=== PATIENT | male | born 1950 | race Two or more races ===

== ENCOUNTER → 2024-02-03 | Outpatient (CLI) | payer OTHER, SELFPAY ==
--- NOTE | 2024-02-03 14:00 | XR_ITS ---
Examination: Bone densitometry Date and time of exam:February 03, 2024 1353 hours INDICATIONS: 73-year-old male with diagnosis age related osteoporosis Technique: Lumbar spine and hip total bone mineralization values of an calculated. Peak reference and age match control results have been displayed. Findings: Lumbar spine total bone mineralization is1.055 gm/cm2. This is 0.3 standard deviations below peak reference. This is 0.6 standard deviations above age-matched controls. Hip total bone mineralization is 1.072 gm/cm2 This is 0.1 standard deviations above peak reference. This is 0.9 standard deviations above age-matched controls Impression: There is normal mineralization based on lumbar spine measurements. There is normal mineralization based on hip measurements
== END | disposition home or self-care (01) ==
PROVIDERS: PCP Family Medicine; Referring Provider Ophthalmology; Visit Provider Family Medicine
DX: M81.0 Age-related osteoporosis without current pathological fracture (principal)
CPT/HCPCS: 77080

== ENCOUNTER 2024-02-15 14:35 | Outpatient (AMB) | payer OTHER, SELFPAY ==
[2024-02-15 15:11] VITALS: BP 176/96; PULSE 62; RESP 18; TEMP 35.7; O2SAT 94; BMI 34.3
--- NOTE | 2024-02-15 15:11 | PD.ORTHCLVIS ---
Vital signs 02/15/24 15:11 Height 1.78 m Height Method Stated Weight 108.635 kg Weight Measurement Method Standing Scale BMI 34.3 BP 176/96 H Blood Pressure Source Automatic Cuff Blood Pressure Location Right Upper Arm Position Sitting Respiration 18 Pulse 62 Pulse Source Monitor Temp 96.2 F L Temp Source Temporal Artery Scan Pulse Oximetry (%) 94 L Oxygen Delivery Method Room Air Med/Allergies Allergies & Medications Allergies No Known Allergies Allergy (Verified 02/15/24 15:12) Medication Reconciliation acetaminophen 500 mg tablet 500 mg PO Q6H PRN Pain 08/10/23 [History Confirmed 02/15/24] atorvastatin 40 mg tablet 40 mg PO QPM 08/10/23 [History Confirmed 02/15/24] gemfibrozil 600 mg tablet 600 mg PO BID 08/10/23 [History Confirmed 02/15/24] ibuprofen 800 mg tablet 800 mg PO Q8H PRN Pain 08/10/23 [History Confirmed 02/15/24] lisinopril 40 mg tablet 40 mg PO QDAY 08/10/23 [History Confirmed 02/15/24] tizanidine 4 mg capsule 4 mg PO Q8H PRN Pain 08/10/23 [History Confirmed 02/15/24] acetaminophen 500 mg tablet (Acetaminophen Extra Strength) 1,000 mg (2 x 500 mg) PO Q6H PRN pain #90 tabs 08/11/23 [Rx Confirmed 02/15/24] aspirin 81 mg tablet,delayed release 81 mg PO BID #60 tabs 08/11/23 [Rx Confirmed 02/15/24] doxycycline hyclate 100 mg tablet 100 mg PO BID #14 tabs 08/11/23 [Rx Confirmed 02/15/24] gabapentin 300 mg capsule 300 mg PO .qhs #30 caps 08/11/23 [Rx Confirmed 02/15/24] oxycodone 5 mg tablet 5 mg PO Q6H PRN pain #28 tabs 08/11/23 [Rx Confirmed 02/15/24] sennosides 8.6 mg-docusate sodium 50 mg tablet (Senna-S) 1 tab-cap PO QDAY #30 tabs 08/11/23 [Rx Confirmed 02/15/24] Exam Exam Patient is in no acute distress and is cooperative with the examination today. Patient has a normal mood and affect. Breathing is nonlabored. In no respiratory distress. Bilateral extremities were evaluated and demonstrates sensation intact to light touch. Palpable pedal pulses are present. No significant edema is present. Right hip incisions clean dry intact. His leg lengths are equal \ Right hip x-rays demonstrate a cementless total hip replacement in good alignment position Assessment and Plan Problem List (1) Status post total hip replacement, right: Status: Acute Plan: Patient is doing well status post right total hip replacement. His x-rays look good. He is doing well status post right total hip replacement has no pain at all. We will see him on an as-needed basis or every 1 to 2 years at this point Advanced Care Planning Discussion Advance care planning discussed with:: patient Office Procedures GNS Level of Care Nursing/Assessment Patient Status: Established Patient Nursing Assessment/Reassesment: Medication Reconciliation, Update PMH in EMR and Vital Signs Coordination of Care: Complex Care and Chronic Disease 1-5, Education Complex Pt/Fam, Consent,records obtained, informed consent, Results/Orders obtained and Staff clarify orders Established Patient Charge Established Patient Point Assignment: 95 Established Patient Point Charge: EP Level 3 (80-115) [place] Intake Visit Data Collection New Patient or Established: Established Patient (seen at [facility] within 3 years) Reason for Visit:: F/U [facility] [employer] Required: Yes PCP or OBGYN visit in last 3 months: Yes Hx Now: No Do You Feel Safe at Home: Yes Authorities Contacted: N/A Questionairres Past Medical History Past Medical History Have you ever been diagnosed with any of the following: Neurological Problems Alzheimer's Disease: No Seizures: No Cardiology Problems Hypercholesterolemia: Yes Congestive Heart Failure: No Hypertension: Yes Varicose Veins: Yes Respiratory Problems Chronic Obstructive Pulmonary Disease (COPD): No Smoking: No Smoking Exposure: No Stomache/Intestinal Problems Hepatitis: No Obesity: Yes Genital/Urinary Problems Renal Disease: No Musculoskeletal Problems Arthritis: Yes Endocrine Problems Diabetes Mellitus Type 1: No Diabetes Mellitus Type 2: No Psychologic Problems Anxiety: No Other Problems Hospitalization: No Shingles: No Blood Transfusions: No Blood Transfusion Reaction: No Anesthesia Reactions: No MRSA: No Chicken Pox: Yes Measles: Yes Mumps: Yes Cancer: No Surgical History Total Hip Replacement: Yes Subjective Visit Visit for: follow up visit, knee and x-rays Immunization / Flu Flu Vaccine in the Last 12 Months: Yes Flu Vaccine Exclusion Criteria: Already Received History of Present Illness Chief complaint: F/U [facility] Gavin is doing well status post right total hip replacement. It has been 6 months and he has no pain or any issues Pain Pain level (0-10): 0 Ambulatory data Ambulatory device: none Treatments Improvement with previous injections: No Improvement with PT: No Improvement with NSAIDS: n/a Review of Systems Review of Systems: All systems negative unless otherwise noted in HPI.
== END 2024-02-15 15:40 | disposition home or self-care (01) ==
LOC: HODSRG 14:35
PROVIDERS: PCP Family Medicine; Referring Provider Family Medicine; Supervising Provider Orthopaedic Surgery Adult Reconstructive Orthopaedic Surgery; Visit Provider Orthopaedic Surgery Adult Reconstructive Orthopaedic Surgery
DX: Z96.641 Presence of right artificial hip joint (principal); I10 Essential (primary) hypertension; E78.00 Pure hypercholesterolemia, unspecified
CPT/HCPCS: 99213; G0463